=== PATIENT | female | born 1990 | race American Indian/Alaskan Native ===

== ENCOUNTER 2018-08-10 20:59 | Emergency (ER) | payer OTHER ==
--- NOTE | 2018-08-10 21:57 | Event Note ---
ED Screening Note Date of service: 08/10/18 Time: 21:56 ED Screening Note: 27 y/o female comes in for left wrist laceration around 2044. UTD tetanus This initial assessment/diagnostic orders/clinical plan/treatment(s) is/are subject to change based on patients health status, clinical progression and re- assessment by fellow clinical providers in the ED. Further treatment and workup at subsequent clinical providers discretion. Patient/guardian urged not to elope from the ED as their condition may be serious if not clinically assessed and managed. Initial orders include:
[2018-08-11] MEDS ORDERED: IBUPROFEN PO ONE (00:15)
[2018-08-11] MEDS ORDERED: TYLENOL PO ONE (02:20)
--- NOTE | 2018-08-11 03:19 | Emergency Department Report ---
- General Chief Complaint: Wound/Laceration Stated Complaint: LT ARM LAC Time Seen by Provider: 08/11/18 01:57 Source: patient Mode of arrival: Ambulatory Limitations: No Limitations - History of Present Illness Initial Comments: Patient is a 27-year-old female who presents to the emergency Department with complaints of a cut to her left hand that occurred around 9PM. She states she broke a class candle jar, and it cut her. She states she has pain in her left thumb in a tingling sensation in the left thumb. She denies any numbness or weakness. States her last tetanus shot was last year. Bleeding is controlled. She is able to move all digits. No past medical history. No allergies medications. - Related Data Allergies Allergy/AdvReac Type Severity Reaction Status Date / Time No Known Allergies Allergy Verified 08/10/18 21:10 ED Review of Systems ROS: Stated complaint: LT ARM LAC Other details as noted in HPI Comment: All other systems reviewed and negative ED Past Medical Hx - Past Medical History Previous Medical History?: No - Surgical History Past Surgical History?: No - Social History Smoking Status: Never Smoker Substance Use Type: Alcohol ED Physical Exam - General Limitations: No Limitations General appearance: alert, in no apparent distress - Head Head exam: Present: atraumatic, normocephalic - Eye Eye exam: Present: normal appearance, PERRL - ENT ENT exam: Present: mucous membranes moist - Neurological Exam Neurological exam: Present: alert, oriented X3 - Psychiatric Psychiatric exam: Present: normal affect, normal mood - Skin Skin exam: Present: warm, other (1.5 cm laceration to the proximal end of the left thumb over the left 1st metacarpal, superficial, no tendon involvement, no foregin body visualized, FROM of the left thumb, no TTP of the left thumb, no tenderness with axial compression of the thumb, 2+ radial pulse, sensation intact ) ED Course Vital Signs 08/11/18 04:45 Temperature 98.4 F Pulse Rate 60 Respiratory 15 Rate Blood Pressure 110/61 [Right] O2 Sat by Pulse 100 Oximetry - Laceration /Wound Repair Left Palm Hand Wound Location: upper extremity (palm surface of the left hand over the 1st metacarpal ) Wound Length (cm): 1 (1.5) Wound's Depth, Shape: superficial Wound Explored: clean Irrigated w/ Saline (ccs): 20 Betadine Prep?: Yes Volume Anesthetic (ccs): 1 (2% lidocaine) Wound Debrided: minimal Wound Repaired With: sutures Suture Size/Type: 3:0 Number of Sutures: 3 Layer Closure?: No Sterile Dressing Applied?: Yes Progress: area irrigated with normal saline, no tendon involvement, superficial, no foreign body, prepped with betadine, sterile drapes applied, 1 cc of 2% lidocaine used, repaired with 3-0 prolene, 3 sutures, pt tolerated well, blee ding controlled, sterile dressing applied ED Medical Decision Making - Radiology Data Radiology results: report reviewed PROCEDURE: XR HAND 3+V LT TECHNIQUE: 3 views of the left hand were obtained. HISTORY: cut with glass jar on left hand COMPARISONS: None FINDINGS: There is mild soft tissue swelling along the radial aspect of the wrist. There is no evidence of foreign body or fracture. IMPRESSION: Mild soft tissue swelling along the radial aspect of the wrist. No evidence of foreign body or fracture.. This document is electronically signed by Oscar Altman MD., August 11 2018 03:41:16 AM ET Transcribed By: ANGI Dictated By: OSCAR ALTMAN MD Electronically Authenticated By: OSCAR ALTMAN MD Signed Date/Time: 08/11/18 0343 - Medical Decision Making Patient is a 27-year-old female who presents to the emergency Department with complaints of a cut to her left hand that occurred around 9PM. She states she broke a class candle jar, and it cut her. She states she has pain in her left thumb in a tingling sensation in the left thumb. She denies any numbness or weakness. States her last tetanus shot was last year. Bleeding is controlled. She is able to move all digits. No past medical history. No allergies medications. on exam: 1.5 cm laceration to the proximal end of the left thumb over the left 1st metacarpal, superficial, no tendon involvement, no foregin body visualized, FROM of the left thumb, no TTP of the left thumb, no tenderness with axial compression of the thumb, 2+ radial pulse, sensation intact. XR right hand Mild soft tissue swelling along the radial aspect of the wrist. No evidence of foreign body or fracture. laceration irrigated with saline and cleaned with betadine and repaired with sutures per procedure note. advised pt to please keep the area clean and dry. May wash soap and water and immediately dry. Sutures will need to be removed in 7 days. May return to the emergency department or be seen by primary care doctor. Return to the emergency room for any new or worsening symptoms or any signs of infection. Critical care attestation.: If time is entered above; I have spent that time in minutes in the direct care of this critically ill patient, excluding procedure time. ED Disposition Clinical Impression: Laceration of left hand Qualifiers: Encounter type: initial encounter Foreign body presence: without foreign body Qualified Code(s): S61.412A - Laceration without foreign body of left hand, initial encounter Disposition: TO HOME OR SELFCARE Is pt being admited?: No Does the pt Need Aspirin: No Condition: Stable Instructions: Suture Care (ED), Laceration (ED) Additional Instructions: Please keep the area clean and dry. May wash soap and water and immediately dry. Sutures will need to be removed in 7 days. May return to the emergency department or be seen by primary care doctor. Return to the emergency room for any new or worsening symptoms or any signs of infection. Referrals: PRIMARY CAREMD [Primary Care Provider] - 2-3 Days Forms: Work/School Release Form(ED) Time of Disposition: 04:37 Print Language: ROMANIAN
--- NOTE | 2018-08-11 03:43 | XRay Report ---
PROCEDURE: XR HAND 3+V LT TECHNIQUE: 3 views of the left hand were obtained. HISTORY: cut with glass jar on left hand COMPARISONS: None FINDINGS: There is mild soft tissue swelling along the radial aspect of the wrist. There is no evidence of fore ign body or fracture. IMPRESSION: Mild soft tissue swelling along the radial aspect of the wrist. No evidence of foreign body or fractu re.. This document is electronically signed by Oscar Altman MD., August 11 2018 03:41:16 AM ET
[2018-08-11 05:54] VITALS: BP 110/61
== END 2018-08-11 04:45 | disposition home or self-care (01) ==
LOC: ED 20:59
DX: S61.412A Laceration without foreign body of left hand, initial encounter (principal); W26.8XXA Contact with other sharp object(s), not elsewhere classified, initial encounter; Y93.89 Activity, other specified; Y92.89 Other specified places as the place of occurrence of the external cause; Y99.8 Other external cause status

== ENCOUNTER 2018-08-18 14:04 | Emergency (ER) | payer SELFPAY ==
--- NOTE | 2018-08-18 14:16 | Emergency Department Report ---
Suture/Staple Removal - [facility] Chief Complaint: Laceration/Recheck/Suture Stated Complaint: STITCHES REMOVED When Sutures or Bixby Placed: 8-10 Days Ago Wound Location: left wrist ED Review of Systems ROS: Stated complaint: STITCHES REMOVED Other details as noted in HPI Constitutional: denies: chills, fever Eyes: denies: eye pain, eye discharge, vision change ENT: denies: ear pain, throat pain Respiratory: denies: cough, shortness of breath, wheezing Cardiovascular: denies: chest pain, palpitations Endocrine: no symptoms reported Gastrointestinal: denies: abdominal pain, nausea, diarrhea Genitourinary: denies: urgency, dysuria, discharge Musculoskeletal: denies: back pain, joint swelling, arthralgia Skin: denies: rash, lesions Neurological: denies: headache, weakness, paresthesias Psychiatric: denies: anxiety, depression Hematological/Lymphatic: denies: easy bleeding, easy bruising ED Past Medical Hx - Past Medical History Previous Medical History?: No Hx Heart Attack/AMI: No - Surgical History Past Surgical History?: No Hx Breast Surgery: No - Social History Smoking Status: Never Smoker Substance Use Type: Alcohol Suture Removal Exam - Exam General: Vital signs noted. No distress. Alert and acting appropriately. Wound: No Pathologic Erythema, No Tenderness, No Drainage, No Pus, No Wound Dehiscence Other Systems: All other systems reviewed and are unremarkable. ED Course - Reevaluation(s) Reevaluation #1: 08/18/18 14:14 Patient is speaking in full sentences with no signs of distress noted. ED Recheck MDM - Medical Decision Making Total of 3 sutures removed. Patient tolerated well. Patient was instructed to Follow-up with a primary care doctor in 3-5 days or if symptoms worsen and continue return to emergency room as soon as possible. At time of discharge, the patient does not seem toxic or ill in appearance. No acute signs of distress noted. Patient agrees to discharge treatment plan of care. No further questions noted by the patient. Critical care attestation.: If time is entered above; I have spent that time in minutes in the direct care of this critically ill patient, excluding procedure time. ED Disposition Clinical Impression: Visit for suture removal Disposition: TO HOME OR SELFCARE Is pt being admited?: No Does the pt Need Aspirin: No Condition: Stable Instructions: Suture Removal (ED) Additional Instructions: Follow-up with a primary care doctor in 3-5 days or if symptoms worsen and continue return to emergency room as soon as possible. Referrals: PRIMARY CARE, [Referring] - 3-5 Days NITISH SAMAYOA MD [Staff Physician] - 3-5 Days [facility] [Outside] - 3-5 Days [facility] [Outside] - 3-5 Days Forms: Work/School Release Form(ED)
== END 2018-08-18 14:30 | disposition home or self-care (01) ==
LOC: ED 14:04
DX: S61.512D Laceration without foreign body of left wrist, subsequent encounter (principal); X58.XXXD Exposure to other specified factors, subsequent encounter